=== PATIENT | male | born 1960 | race Caucasian/White ===

== ENCOUNTER 2022-04-04 06:09 | Day surgery (SDC) | payer OTHER ==
[~2022-04-04] VITALS: Ht 162.6 cm; Wt 58.2 kg
[2022-04-04] MEDS ORDERED: LIDOCAINE 4% 50 ML SOLUTION TP ONE (06:10)
[2022-04-04] MEDS ORDERED: BENZOCAINE 20% 50 MCG/SPRAY 57 GM TP ONE (06:10)
[2022-04-04] MEDS ORDERED: ALBUTEROL SULFATE 2.5 MG/0.5 ML NEB SOLUTION NEB ONE (06:10)
[2022-04-04] MEDS ORDERED: LIDOCAINE 2% 11 ML JELLY TP ONE (06:10)
[2022-04-04] MEDS ORDERED: SODIUM CHLORIDE 0.9% 1,000 ML IV ONE (06:30)
[2022-04-04 06:33] LABS: COVID AG,FIA SOURCE NASOPHARYNGEAL
[2022-04-04] MEDS ORDERED: SODIUM CHLORIDE 0.9% 1,000 ML ONE (07:33)
[2022-04-04 08:06] LABS: GLUCOMETER DEV NAME(LOC) SDS.; GLUCOSE,POINT OF CARE 111 MG/DL (70-110)
[2022-04-04] MEDS ORDERED: HYDR25TA84 PO (08:10)
[2022-04-04] MEDS ORDERED: METF-1211 PO (08:10)
[2022-04-04] MEDS ORDERED: FENO54TA7 PO (08:10)
[2022-04-04] MEDS ORDERED: DAPA10TA PO (08:10)
[2022-04-04] MEDS ORDERED: FINE10TA PO (08:10)
[2022-04-04] MEDS ORDERED: ALLO-97 PO (08:10)
[2022-04-04] MEDS ORDERED: ICOS1CAP PO (08:10)
[2022-04-04] MEDS ORDERED: NIFE60TA84 PO (08:10)
[2022-04-04] MEDS ORDERED: LISI-894 PO (08:10)
[2022-04-04] MEDS ORDERED: ATOR40TA28 PO (08:10)
[2022-04-04] MEDS ORDERED: CARV12 PO (08:10)
[2022-04-04] MEDS ORDERED: OMEP20 PO (08:10)
[2022-04-04] MEDS ORDERED: ISOS30TA92 PO (08:10)
[2022-04-04] MEDS ORDERED: FURO20 PO (08:10)
[2022-04-04] MEDS ORDERED: ASPI-1450 PO (08:10)
[2022-04-04] MEDS ORDERED: FERR325T27 PO (08:10)
[2022-04-04] MEDS ORDERED: TICA90TA PO (08:10)
[2022-04-04] MEDS ORDERED: FentaNYL CITRATE PF 100 MCG/2 ML VIAL ONE (08:20)
[2022-04-04] MEDS ORDERED: MIDAZOLAM HCL 5 MG/ML VIAL ONE (08:20)
[2022-04-04] MEDS ORDERED: SODIUM CHLORIDE 0.9% 10 ML ONE (08:30)
[2022-04-04] MEDS ORDERED: MethylPREDNISolone SOD SUCC 125 MG/2 ML VIAL IVP ONE (09:30)
[2022-04-04] MEDS ORDERED: MethylPREDNISolone SOD SUCC 125 MG/2 ML VIAL ONE (10:06)
[2022-04-04] MEDS ORDERED: OXYGEN THERAPY IH SCH (20:00)
== END 2022-04-04 11:05 | disposition home or self-care (01) ==
LOC: SURGERY 06:09
PROVIDERS: ATTEND Internal Medicine Critical Care Medicine
DX: J38.4 Edema of larynx (principal); B37.0 Candidal stomatitis; F17.210 Nicotine dependence, cigarettes, uncomplicated; I10 Essential (primary) hypertension; E11.9 Type 2 diabetes mellitus without complications; Z79.4 Long term (current) use of insulin; Z98.890 Other specified postprocedural states; Z79.899 Other long term (current) drug therapy
CPT/HCPCS: 31623; 88112; 82962; 87206; 87101; 87220; 87070; 88305; 88312; 31624; 71045; 87015; 87426; J3010; J2930; J2250; Q9967; J7030; C9803; J7613; Z7610

== ENCOUNTER 2023-09-06 06:45 | Day surgery (SDC) | payer OTHER ==
[~2023-09-06] VITALS: Ht 162.6 cm; Wt 58.1 kg
[~2023-09-06 06:45] MED LIST: ALBU18HF12 IH; ALIR150P6 SQ; ALLO-97 PO; ASPI-1444 PO; ATOR-2 PO; CARV25TA32 PO; CHOL200059 PO; CYCL05OE OU; DAPA10TA PO; DICL100G60 TP; ESCI-8 PO; FERR325T27 PO; FINE10TA PO; FLUT12AE3 IH; FLUT16H NASAL; FOLI-130 PO; FURO40TA5 PO; ICOS1CAP PO; INSU100I26 SQ; ISOS60TA77 PO; LINA5TAB PO; LISI40TA9 PO; MONT-40 PO; NIFE-79 PO; NITR0.4T50 SL; OMEP20CA12 PO; PRED-729 PO; SUCR1TAB PO; TICA60TA PO; TIOT4MIS2 IH
[2023-09-06] MEDS ORDERED: SODIUM CHLORIDE 0.9% 1,000 ML IV ONE (07:00)
[2023-09-06] MEDS ORDERED: SODIUM CHLORIDE 0.9% 1,000 ML ONE (07:09)
[2023-09-06] MEDS ORDERED: FentaNYL CITRATE PF 100 MCG/2 ML VIAL ONE (07:40)
[2023-09-06] MEDS ORDERED: MIDAZOLAM HCL 2 MG/2 ML VIAL ONE (07:40)
[2023-09-06 08:41] LABS: GLUCOMETER DEV NAME(LOC) SDS.; GLUCOSE,POINT OF CARE 279 MG/DL (70-110)
[2023-09-06 08:55] VITALS: PULSE 77; RESP 21; O2SAT 100
[2023-09-06] MEDS ORDERED: MethylPREDNISolone SOD SUCC 125 MG/2 ML VIAL ONE ×2 (08:57→09:43)
[2023-09-06] MEDS ORDERED: MethylPREDNISolone SOD SUCC 125 MG/2 ML VIAL IVP ONE ×2 (09:00→09:45)
[2023-09-06] MEDS ORDERED: PROMETHAZINE HCL/CODEINE 6.25-10MG/5ML SOLUTION UDCUP PO ONE (10:00)
== END 2023-09-06 10:40 | disposition home or self-care (01) ==
LOC: SURGERY 06:45
PROVIDERS: ATTEND Internal Medicine Critical Care Medicine
DX: R91.1 Solitary pulmonary nodule (principal); J98.09 Other diseases of bronchus, not elsewhere classified; J98.8 Other specified respiratory disorders; J44.9 Chronic obstructive pulmonary disease, unspecified; I10 Essential (primary) hypertension; E11.9 Type 2 diabetes mellitus without complications; E78.00 Pure hypercholesterolemia, unspecified; Z79.899 Other long term (current) drug therapy; F17.200 Nicotine dependence, unspecified, uncomplicated; Z98.49 Cataract extraction status, unspecified eye
CPT/HCPCS: 31623; 82962; 87206; 87101; 87220; 87070; 88108; 88305; 31624; 94640; 71045; 87015; J3010; J2250; J2930; J7030